=== PATIENT | female | born 1985 | race Caucasian/White ===

== ENCOUNTER 2017-07-23 18:38 | Emergency (ER) | payer BC ==
[2017-07-23 19:47] VITALS: BP 126/61
== END 2017-07-23 19:48 | disposition left against medical advice (07) ==
LOC: ED 18:38
DX: M79.602 Pain in left arm (principal); K21.9 Gastro-esophageal reflux disease without esophagitis
CPT/HCPCS: 99281

== ENCOUNTER 2017-07-24 10:13 | Emergency (ER) | payer BC ==
[2017-07-24 10:57] VITALS: BP 130/87
--- NOTE | 2017-07-24 11:49 | UC ---
Complaint Female HPI - HPI Summary HPI Summary: 31 Y/O female being seen for complaint of right lower quadrant pain and R flank pain. States pain began approximately two weeks ago "when I was ovulating". States history of ovarian cysts. Denies fever, chills, nausea, or vomiting. Denies vaginal discharge. Denies dysuria or frequency. Past medical and medications have been reviewed at this visit. - History Of Current Complaint Chief Complaint: UCGU Stated Complaint: ABD PAIN Time Seen by Provider: 07/24/17 11:25 Hx Obtained From: Patient Hx Last Menstrual Period: 07/09/17 ?: No Onset/Duration: Gradual Onset, Lasting Weeks Timing: Constant Severity Initially: Mild Severity Currently: Moderate Pain Intensity: 7 Pain Scale Used: 0-10 Numeric Radiates to: R flank Character: Sharp Aggravating Factor(s): Movement Alleviating Factor(s): Nothing Associated Signs And Symptoms: Positive: Negative - Risk Factors Ectopic Risk Factor: Negative Ovarian Torsion Risk Factor: Ovarian Cysts/Tumors - Allergies/Home Medications Allergies/Adverse Reactions: Allergies Allergy/AdvReac Type Severity Reaction Status Date / Time Cyclobenzaprine Allergy See Comment Verified 07/24/17 10:57 [From Flexeril] Dronedarone [From Multaq] Allergy Unknown Verified 07/24/17 10:57 Reaction Details Flecainide [From Tambocor] Allergy Shortness Verified 07/24/17 10:57 of Breath Home Medications: Home Medications FLUoxetine CAP* [Prozac CAP*] 10 mg PO DAILY 07/24/17 [History Confirmed ] PMH/Surg Hx/FS Hx/Imm Hx Previously Healthy: Yes - Surgical History Surgical History: Yes Surgery Procedure, Year, and Place: heart monitor - Family History Known Family History: Positive: Cardiac Disease, Other - thyroid ca - Social History Alcohol Use: Occasionally Substance Use Type: None Smoking Status (MU): Former Smoker Have You Smoked in the Last Year: No When Did the Patient Quit Smoking/Using Tobacco: 2007 - Immunization History Most Recent Influenza Vaccination: fall 2013 Most Recent Tetanus Shot: within 10 years Most Recent Pneumonia Vaccination: never Review of Systems Constitutional: Negative Skin: Negative Eyes: Negative ENT: Negative Respiratory: Negative Cardiovascular: Negative Gastrointestinal: Negative Genitourinary: Negative Motor: Negative Neurovascular: Negative Musculoskeletal: Negative Neurological: Negative Psychological: Negative Is Patient Immunocompromised?: No All Other Systems Reviewed And Are Negative: Yes Physical Exam Triage Information Reviewed: Yes Appearance: Well-Appearing Vital Signs: Initial Vital Signs Temp 98.1 F 07/24/17 10:53 Pulse 93 07/24/17 10:53 Resp 17 07/24/17 10:53 BP 130/87 07/24/17 10:53 Pulse Ox 99 07/24/17 10:53 Vital Signs Reviewed: Yes Eye Exam: Normal Eyes: Positive: Conjunctiva Clear Respiratory Exam: Normal Respiratory: Positive: Lungs clear, Normal breath sounds Cardiovascular Exam: Normal Cardiovascular: Positive: RRR Abdomen Description: Positive: CVA Tenderness (R) Bowel Sounds: Positive: Present Musculoskeletal Exam: Normal Neurological Exam: Normal Psychological Exam: Normal Skin Exam: Normal Complaint Female Dx - Differential Dx/Diagnosis Differential Diagnosis/HQI/PQRI: Ovarian Cyst, Pelvic Inflammatory Disease, Sexually Transmitted Disease, Urinary Tract Infection Provider Diagnoses: UTI, Pelvic Pain Discharge - Discharge Plan Condition: Stable Disposition: HOME Patient Education Materials: Ovarian Cyst (ED), Urinary Tract Infection in Women (ED) Additional Instructions: You have bee prescribed antibiotics for a urinary tract infection. Please take as directed. Follow up with your MOTOR TESTER or Urgent care for worsening symptoms.
--- NOTE | 2017-07-25 16:30 | UC ---
Progress - Progress Note Progress Note: G/C/TRICH NEGATIVE. CALL PATIENT
--- NOTE | 2017-07-25 16:31 | UC ---
Progress - Progress Note Progress Note: CBC (WBC 13), CMP NO ACUTE CHANGES, G/C/TRICH NEGATIVE. CALL PATIENT
--- NOTE | 2017-07-26 21:24 | UC ---
Progress - Progress Note Progress Note: call patient advise no uti, no gardenerella, jose, or trich- if not resolved please get rechecked--rajani moreauc
== END 2017-07-24 12:08 | disposition home or self-care (01) ==
LOC: UCEAST 10:13
DX: N39.0 Urinary tract infection, site not specified (principal); R10.2 Pelvic and perineal pain; Z88.8 Allergy status to other drugs, medicaments and biological substances
CPT/HCPCS: 81003; 84702; 87086; 87480; 87491; 87510; 87591; 87660; 99212; G0463

== ENCOUNTER 2017-08-10 06:06 | Day surgery (SDC) | payer BC ==
[~2017-08-10 06:06] MED LIST: Buffered Lidocaine 0.9% SYRIN* 5 ML/SYR SYRINGE INTRADERM ONE; Dexamethasone IV* 4 MG/ML 1 ML (4 MG) IV SLOW PU ONE; Famotidine IV* 10 MG/ML 2 ML (20 mg) IV ONE
[2017-08-10] MEDS ORDERED: Dexamethasone IV* 4 MG/ML 1 ML (4 MG) ONE (07:20)
[2017-08-10] MEDS ORDERED: Famotidine IV* 10 MG/ML 2 ML (20 mg) ONE (07:20)
[2017-08-10] MEDS ORDERED: Bupivacaine 0.5% SDV PF* 30 ML VIAL ONE (07:29)
[2017-08-10] MEDS ORDERED: fentaNYL* 50 MCG/ML 2 ML VIAL (100 MCG VIAL) ONE ×3 (07:41→10:07)
[2017-08-10] MEDS ORDERED: Midazolam* 1 MG/ML 2 ML VIAL (2 MG) ONE (07:42)
[2017-08-10] MEDS ORDERED: ceFAZolin 2 GM PREMIX (*) 2 GM/50 ML BAG IVPB ONE (07:42)
[2017-08-10] MEDS ORDERED: Lidocaine 1% INJ* 10 MG/ML 30 ML SDV ONE (07:48)
[2017-08-10] MEDS ORDERED: Rocuronium* 10 MG/ML VIAL ONE (07:55)
[2017-08-10] MEDS ORDERED: Ropivacaine (OR use only) 2 MG/ML 1 ML ONE (07:55)
[2017-08-10] MEDS ORDERED: Succinylcholine* 20 MG/ML 10 ML VIAL ONE (07:56)
[2017-08-10] MEDS ORDERED: Propofol* 10 MG/ML 20 ML BTL IV PUSH ONE (09:02)
[2017-08-10] MEDS ORDERED: Neostigmine Methylsulfate* 2 MG/2 ML SYRINGE ONE (09:02)
[2017-08-10] MEDS ORDERED: Ketorolac INJ* 30 MG/ML 1 ML VIAL ONE (09:02)
[2017-08-10] MEDS ORDERED: Ondansetron INJ* 2 MG/ML VIAL ONE (09:02)
[2017-08-10] MEDS ORDERED: Glycopyrrolate IV* 0.2 MG/ML 1 ML VIAL ONE (09:02)
[2017-08-10] MEDS ORDERED: DiMENhydriNATE IV* 50 MG/ML VIAL IV PUSH PRN (09:25)
[2017-08-10] MEDS ORDERED: DiMENhydriNATE IV* 50 MG/ML VIAL ONE (09:34)
[2017-08-10] MEDS: fentaNYL* 50 MCG/ML 2 ML VIAL (100 MCG VIAL) IV PRN ×3 (09:35→10:06)
[2017-08-10] MEDS ORDERED: oxyCODONE/Acetamin 5/325 MG* TAB ONE ×2 (11:20→11:48)
[2017-08-10 11:50] VITALS: BP 115/80
--- NOTE | 2017-08-17 00:13 | OP ---
CC: Dr. Jerry * DATE OF OPERATION: 08/10/17 - [facility] DATE OF : 81 SURGEON: Jose Gutierrez MD. VICE PRESIDENT SUPPLY CHAIN: Dr. Jerry. ANESTHESIA: General anesthetic with endotracheal intubation. PRE-OP DIAGNOSIS: Persistent symptomatic right ovarian enlarged cyst. POST-OP DIAGNOSIS: Persistent symptomatic right ovarian enlarged cyst along with an enlarged simple cyst and pelvic posterior uterine wall adhesions. OPERATIVE PROCEDURE: Laparoscopic right ovarian cystectomy and lysis of adhesions. ESTIMATED BLOOD LOSS: None. SPECIMENS SENT TO PATHOLOGY: Right ovarian cyst wall. FLUIDS: She received 1 L of IV crystalloid fluid. URINE OUTPUT: 50 cc of clear urine. FINDINGS: The patient was noted to have a posterior uterine wall to right ovarian cyst adhesions and posterior uterine wall to bowel adhesions. She was noted to have an enlarged 8+ cm simple unilateral cyst with a straw-colored fluid. She was noted to have normal tubes bilaterally and normal left ovary. Normal bowel and bladder and uterus. There were no complications during this procedure. DESCRIPTION OF PROCEDURE: The patient was taken to the operating room where she was identified. She was placed on the operating table where a general anesthetic with endotracheal intubation was obtained without difficulty. She was then placed in the dorsal lithotomy position, prepped and draped in normal sterile fashion. Attention was then brought on to the patient's perineum, where the bladder was catheterized with a Gonzalez catheter and drained of clear urine. A weighted speculum was inserted into the patient's vagina. The cervix was identified and grasped with a single-tooth tenaculum and through the cervix a ClearView uterine manipulator was introduced. The balloon and manipulator was insufflated with 4 cc of sterile water. The speculum was removed from the patient's vagina. At this point, attention was then brought on to the patient's abdomen where a 1-cm infraumbilical skin incision was made with a knife and carried through to underlying layer of fascia. The fascia was then grasped with Berny clamps, brought up to the incision and incised easily with a knife and entry into the perineum was confirmed using a Adrianna clamp. Through this umbilical incision, a single side laparoscopic port was introduced and through this port, two 5 mm trocars and one 5 mm trocar was introduced for the camera. We then proceeded to identify the patient's pelvic anatomy. The description of the findings are noted above. We performed an ovarian cystotomy using a combination of cautery and sharp dissection. The ovarian cyst was noted to be unilateral, filled with straw-colored fluid and top of the uterine cyst was removed using cautery sharp dissection. This was sent to pathology. We then proceeded to lyse the adhesions from the right ovary to the posterior uterine wall posterior uterine wall using a LigaSure cautery and dissection. After we were able to restore anatomy and the cyst was drained of its fluid and ovarian cyst capsule removed, specimens were sent to pathology. We then proceeded to remove all the instruments from the patient's abdomen. The umbilical incision was closed using 0 Polysorb suture in a running fashion and the skin was closed with a 4-0 Monocryl and a subcuticular stitch. All the instruments were removed from the patient's vagina as well. Sponge, lap, and needle counts were correct x2. She was then transferred to recovery room area in stable condition. [id number] #: [id number] OBDULIA
== END 2017-08-10 11:52 | disposition home or self-care (01) ==
LOC: OR 06:06
PROVIDERS: ATTEND Obstetrics & Gynecology
DX: N83.201 Unspecified ovarian cyst, right side (principal); N73.6 Female pelvic peritoneal adhesions (postinfective); Z68.31 Body mass index [BMI] 31.0-31.9, adult; I47.1 Supraventricular tachycardia; I48.91 Unspecified atrial fibrillation; R10.31 Right lower quadrant pain; E03.9 Hypothyroidism, unspecified; F41.8 Other specified anxiety disorders
CPT/HCPCS: 88304; A9270-GY; J0330; J0690; J1100; J1240; J1885; J2001; J2250; J2405; J2704; J2795; J3010

== ENCOUNTER 2018-05-19 18:06 | Emergency (ER) | payer OTHER ==
[2018-05-19 18:17] VITALS: BP 128/85
--- NOTE | 2018-05-19 18:31 | UC ---
Abdominal Pain Female HPI - HPI Summary HPI Summary: 32 y/o female presents to the urgent care c/o RLQ acute abdominal pain sine last night. Pain increased in severity this morning. Pain is 7/10 sharp and constant w/o any radiation. Pt reports she has PMHX of ovarian cysts which grow very fast. Last year she had a RT ovarian cyst of about 8.5cm in size which was removed by Dr Gutierrez her [facility]. Pt took a Tylenol PO this morning to alleviate symptoms. LMP: 05/03/2018 w/ regular menstrual cycles Pt denies urinary symptoms and is taking OCP. Pt denies fever, urinary symptoms, vaginal discharge, SOB, chest pain, N/v/D, Hx of STD's. Pt w/ normal BM and eating well. - History of Current Complaint Chief Complaint: UCAbdominalPain Stated Complaint: ABDOMINAL COMPLAINT Time Seen by Provider: 05/19/18 18:27 Hx Obtained From: Patient Hx Last Menstrual Period: [id number] ?: No Onset/Duration: Gradual Onset, Lasting Days - 1 day, Still Present, Worse Since - this morning Timing: Constant Severity Initially: Mild Severity Currently: Moderate Pain Intensity: 7 Pain Scale Used: 0-10 Numeric Location: Discrete At: RLQ Radiates: No Character: Sharp Aggravating Factor(s): Nothing Alleviating Factor(s): OTC Analgesics Associated Signs and Symptoms: Negative: Fever, Cough, Back Pain, Constipation, Blood in Stool, Urinary Symptoms, Vaginal Bleeding, Nausea, Vomiting, Diarrhea - Risk Factors Ectopic Risk Factor: Negative Ovarian Torsion Risk Factor: Ovarian Cysts/Tumors Allergies/Adverse Reactions: Allergies Allergy/AdvReac Type Severity Reaction Status Date / Time cyclobenzaprine Allergy See Comment Verified 05/19/18 18:23 [From Flexeril] dronedarone [From Multaq] Allergy Unknown Verified 05/19/18 18:23 Reaction Details flecainide [From Tambocor] Allergy Shortness Verified 05/19/18 18:23 of Breath PMH/Surg Hx/FS Hx/Imm Hx Previously Healthy: Yes Endocrine History: Hypothyroidism Other Cardiovascular History: tachycardia Other Respiratory History: Sarcoidosis Other GI/ History: Ovarian cysts - Surgical History Surgical History: Yes Surgery Procedure, Year, and Place: heart monitor. Failed cardiac ablation X2 - Family History Known Family History: Positive: Cardiac Disease, Other - thyroid ca - Social History Occupation: Employed Full-time Lives: With Family Alcohol Use: Occasionally Substance Use Type: None Smoking Status (MU): Former Smoker Have You Smoked in the Last Year: No When Did the Patient Quit Smoking/Using Tobacco: 2007 - Immunization History Most Recent Influenza Vaccination: fall 2013 Most Recent Tetanus Shot: within 10 years Most Recent Pneumonia Vaccination: never Review of Systems Constitutional: Negative Skin: Negative Eyes: Negative ENT: Negative Respiratory: Negative Cardiovascular: Negative Gastrointestinal: Abdominal Pain - RLQ Genitourinary: Negative Motor: Negative Neurovascular: Negative Musculoskeletal: Negative Neurological: Negative Psychological: Negative Is Patient Immunocompromised?: No All Other Systems Reviewed And Are Negative: Yes Physical Exam - Summary Physical Exam Summary: Vital Signs Reviewed: Yes General:Patient is a well developed and nourished female who is sitting comfortable in the examining table. Patient is not in any acute respiratory distress. Eyes: Positive: Conjunctiva Clear - PERRLA, EOMI, fundi grossly normal ENT: Positive: Normal ENT inspection, Hearing grossly normal, Pharynx normal, TMs normal Neck: Positive: Supple, Nontender, No Lymphadenopathy Respiratory: Positive: Chest non-tender, Lungs clear, Normal breath sounds, No respiratory distress Cardiovascular: Positive: RRR,S1 and S2 present, No Murmur, Pulses Normal, Brisk Capillary Refill Abdomen Description: Positive: Abd: Flat with no distention. No surface trauma , scars, incisions. hyperactive bowel sounds present in all four quadrants. RLQ tenderness w/ mild guarding, other quadrant are negative, no rigidity to palpation. No masses palpated, no pulsation in epigastric area. No organomegaly. Negative Hyannis signs. No periumbilical tenderness. No rebound in the lower quadrants. PT over McBurneys point. Good femoral pulses bilaterally. No hernia noted. No CVAT bilaterally Musculoskeletal: Positive: Strength Intact, ROM Intact, No Edema,FROM in all major joints, no edema, no cyanosis or clubbing. Neuro: Alert and oriented x 3. No acute neurological deficits. Speech is normal. Psychological: WNL Skin: Dry and warm Triage Information Reviewed: Yes Vital Signs: Initial Vital Signs Temp 98.8 F 05/19/18 18:13 Pulse 85 05/19/18 18:13 Resp 16 05/19/18 18:13 BP 128/85 05/19/18 18:13 Pulse Ox 100 05/19/18 18:13 Abd Pain Female Course/Dx - Course Course Of Treatment: 32 y/o female presents to the urgent care c/o RLQ acute abdominal pain sine last night. Pain increased in severity this morning. Pain is 7/10 sharp and constant w/o any radiation. Pt reports she has PMHX of ovarian cysts which grow very fast. Last year she had a RT ovarian cyst of about 8.5cm in size which was removed by Dr Gutierrez her [facility]. Pt took a Tylenol PO this morning to alleviate symptoms. LMP: 05/03/2018 w/ regular menstrual cycles Pt denies urinary symptoms and is taking OCP. Pt denies fever, urinary symptoms, vaginal discharge, SOB, chest pain, N/v/D, Hx of STD's. PE: RLQ point tenderness on deep palpation w/ mild guarding. PT over McBurneys point on examination. Pt is hemodynamycally stable, vital are WNL. UA: negative, test: negative. Pt w/ strong PMHX Hx of ovarina cyst. At this moment no Ultrasound available. Pt's symptoms discussed w/ Dr King since i think Pt needs a hihger level of care. Dr King agreed. Pt strongly advised to go to the [facility] ER to furhter evaluation and treatment on her presenting symptoms. Pt offered ambulance transfer. Pt declined and stated she will go by private car. Pt advised on risks of not going to the ER. Pt understood and agreed w/ plan of care. Pt left clinic hemodynamically stable , A&OX. 3. - Differential Dx/Diagnosis Differential Diagnosis: Appendicitis, Ovarian Cyst, Pelvic Inflammatory Disease , , Renal Colic, Urinary Tract Infection Provider Diagnoses: 1- RLQ acute abdominal pain Discharge - Sign-Out/Discharge Documenting (check all that apply): Patient Departure - D?c w/ recommendation to got to the [facility] ER for fruterh management All imaging exams completed and their final reports reviewed: No Studies - Discharge Plan Condition: Stable Disposition: HOME-RECOMMEND TO ED Patient Education Materials: Acute Abdominal Pain (ED) Referrals: Kelvin Carpenter MD [Primary Care Provider] - 1 Day Additional Instructions: I think you need a higher level or care for your presenting symptoms. I highly recommend you to go to the ER for further evaluation and treatment. The risks of not going can be , sepsis, ovarian torsion, appendicitis, peritonitis, etc. I spoke to the ER attending PA Feliciano Varela. They are expecting you. - Billing Disposition and Condition Condition: STABLE Disposition: Home-Recommend to ED
== END 2018-05-19 18:55 | disposition home health service (06) ==
LOC: UCEAST 18:06
DX: R10.31 Right lower quadrant pain (principal); Z87.42 Personal history of other diseases of the female genital tract; Z88.8 Allergy status to other drugs, medicaments and biological substances
CPT/HCPCS: 81003; 84702; 99212; G0463

== ENCOUNTER 2018-05-19 19:11 | Emergency (ER) | payer OTHER ==
[2018-05-19 20:27] LABS: ABS Basophils 0 10^3/ul (0-0.2); ABS Eosinophils 0.2 10^3/ul (0-0.6); ABS Lymphocytes 2.2 10^3/ul (1.0-4.8); ABS Monocytes 0.5 10^3/ul (0-0.8); ABS Neutrophils 2.2 10^3/ul (1.5-7.7); ABS Nucleated RBC 0 10^3/ul; Eosinophil % 3.7 % (0-6); Hematocrit 35 % (35-47); Hemoglobin 12.4 g/dl (12.0-16.0); Lymphocyte % 43.7 % (25-47); Mean Corpuscular HGB Conc 35 g/dl (31-36); Mean Corpuscular Hemoglobin 30 pg (27-31); Mean Corpuscular Volume 86 fL (80-97); Mean Platelet Volume 8.5 um3 (7.4-10.4); Nucleated Red Blood Cells % 0.1; Platelet Count 234 10^3/ul (150-450); Red Cell Distribution Width 13 % (10.5-15); White Blood Count 5.1 10^3/ul (3.5-10.8)
--- NOTE | 2018-05-19 20:31 | ED ---
Abdominal Pain/Female - HPI Summary HPI Summary: Pt is a 32 year old female presenting to the ED with lower abdominal pain currently rated at a 7 or 8 out of 10. Pt denies any nausea, fevers, diarrhea, vaginal bleeding, and urinary symptoms. Pt states walking makes it worse. LNMP on the 03 of May. Pt denies a family history of crohns disease, also denies drinking and concerns. Pt does have a hx and Fhx of PCOS, as well as a Fhx of diverticulitis. Pt has had an ovarian cyst removed before, stated it was about 9cm large. - History of Current Complaint Chief Complaint: EDAbdPain Stated Complaint: ABD PAIN Time Seen by Provider: 05/19/18 20:14 Hx Obtained From: Patient Hx Last Menstrual Period: [id number] ?: No Onset/Duration: Sudden Onset, Lasting Hours, Still Present Timing: Constant Severity Initially: Moderate Severity Currently: Moderate Pain Intensity: 8 Pain Scale Used: 0-10 Numeric Location: Suprapubic - R side Radiates: Yes Radiates to: Back - Low R back pain Aggravating Factor(s): Other: - walking Associated Signs and Symptoms: Positive: Back Pain. Negative: Fever, Urinary Symptoms, Vaginal Bleeding, Nausea Allergies/Adverse Reactions: Allergies Allergy/AdvReac Type Severity Reaction Status Date / Time cyclobenzaprine Allergy See Comment Verified 05/19/18 18:23 [From Flexeril] dronedarone [From Multaq] Allergy Unknown Verified 05/19/18 18:23 Reaction Details flecainide [From Tambocor] Allergy Shortness Verified 05/19/18 18:23 of Breath PMH/Surg Hx/FS Hx/Imm Hx Previously Healthy: No Endocrine/Hematology History: Reports: Hx Thyroid Disease - TAKING MEDICATION Denies: Hx Diabetes, Hx Anemia Cardiovascular History: Reports: Hx Angina, Other Cardiovascular Problems/ Disorders - SOMETIMES SVT HASN'T HAD IN A YEAR Denies: Hx Hypertension Respiratory History: Reports: Other Respiratory Problems/Disorders - Recently diagnosed with sarcoidosis Denies: Hx Asthma, Hx Chronic Obstructive Pulmonary Disease (COPD) GI History: Denies: Hx Jaundice, Hx Ulcer History: Reports: Other Problems/Disorders - PCOS Musculoskeletal History: Reports: Hx Back Problems, Hx Tendonitis - RIGHT THUMB Sensory History: Denies: Hx Contacts or Glasses, Hx Hearing Aid Opthamlomology History: Denies: Hx Contacts or Glasses Neurological History: Reports: Hx Headaches, Hx Migraine Psychiatric History: Reports: Hx Anxiety, Hx Depression - Surgical History Surgery Procedure, Year, and Place: heart monitor. Failed cardiac ablation X2 Hx Anesthesia Reactions: No Other Surgical History: 9cm ovarian cyst removed - Immunization History Date of Tetanus Vaccine: UTD Date of Influenza Vaccine: 05/2017 Infectious Disease History: No Infectious Disease History: Denies: Hx Clostridium Difficile, Hx Hepatitis, Hx Human Immunodeficiency Virus (HIV), Hx of Known/Suspected MRSA, Hx Shingles, Hx Tuberculosis, Hx Known/ Suspected VRE, Hx Known/Suspected VRSA, History Other Infectious Disease, Traveled Outside the [place] in Last 30 Days - Family History Known Family History: Positive: Cardiac Disease, Other - thyroid ca Family History: Positive diverticulitis, PCOS. Negative crohn's disease - Social History Lives: With Family Alcohol Use: Occasionally Hx Substance Use: No Substance Use Type: Reports: None Hx Tobacco Use: Yes Smoking Status (MU): Former Smoker Have You Smoked in the Last Year: No Review of Systems Negative: Fever Positive: Abdominal Pain. Negative: Diarrhea, Nausea Genitourinary: Negative - vag bleeding, urinary sx All Other Systems Reviewed And Are Negative: Yes Physical Exam - Summary Physical Exam Summary: Appearance: Well appearing, no pain distress Skin: warm, dry, reflects adequate perfusion Head/face: normal Eyes: EOMI, KYA ENT: normal Neck: supple, non-tender Respiratory: CTA, breath sounds present Cardiovascular: RRR, pulses symmetrical Abdomen: bilateral pelvic discomfort, R suprapubic specifically, no rebound or guarding Bowel Sounds: present, normal Musculoskeletal: normal, strength/ROM intact, R low back pain Neuro: normal, sensory motor intact, A&Ox3 Triage Information Reviewed: Yes Vital Signs On Initial Exam: Initial Vitals Temp Pulse Resp BP Pulse Ox 98.6 F 81 18 122/85 97 05/19/18 19:26 05/19/18 19:26 05/19/18 19:26 05/19/18 19:26 05/19/18 19:26 Vital Signs Reviewed: Yes Diagnostics - Vital Signs Vital Signs Temp Pulse Resp BP Pulse Ox 05/19/18 19:26 98.6 F 81 18 122/85 97 - Laboratory Result Diagrams: 05/19/18 20:16 05/19/18 20:16 Lab Statement: Any lab studies that have been ordered have been reviewed, and results considered in the medical decision making process. - Ultrasound No standard instances Ultrasound Interpretation: No Acute Changes - Transvaginal US: Sonographically normal uterus and ovaries. ED physician has reviewed this report. Ultrasound Interpretation Completed By: Radiologist Re-Evaluation - Re-Evaluation 1 Re-Evaluation Time: 22:00 Change: Improved - CT scan offered, pt denied, sent home by ED physician. Abdominal Pain Fem Course/Dx - Course Course Of Treatment: Patient had significant improvement in discomfort. She is very benign-appearing. There is no peritoneal signs. An ultrasound of her pelvis failed to reveal any pathology, most notably cysts. She does have some pain just below the right lower quadrant the abdomen. The patient has to be home to care for her daughter -- she was given extensive appendicitis precautions and return instructions. I've instructed her to call me or return through the night should she have increasing pain in the right lower quadrant. She has negative CRP, WBC. There is no fever, nausea, etc. She has a normal gait and is moving freely without discomfort. She wishes to the home at this point and not have CT scan. - Diagnoses Differential Diagnosis: Positive: Appendicitis, Ectopic , Ovarian Cyst , Pelvic Inflammatory Disease, Urinary Tract Infection Provider Diagnoses: Pelvic pain Discharge - Sign-Out/Discharge Documenting (check all that apply): Patient Departure - Discharge Plan Condition: Improved Disposition: HOME Patient Education Materials: Pelvic Pain in Women (ED) Referrals: Kelvin Carpenter MD [Primary Care Provider] - Additional Instructions: Ibuprofen as needed. Return with fever, increasing pain, nausea/vomiting, or other concerns as discussed. Appendicitis is still a concern given the location of the pain. If you have problems please return and it is likely a CAT scan will be performed. - Billing Disposition and Condition Condition: IMPROVED Disposition: Home - Attestation Statements Document Initiated by Scribe: Yes Documenting Scribe: Marci Lora Provider For Whom Derrick is Documenting (Include Credential): Wilfrid Monroe MD. Scribe Attestation: Marci Encinas, scribed for Wilfrid Monroe MD. on 05/19/18 at 2252. Scribe Documentation Reviewed: Yes Provider Attestation: The documentation as recorded by the [email or web address] accurately reflects the service I personally performed and the decisions made by me, Wilfrid Monroe MD.
[2018-05-19 20:39] LABS: EGFR Non-African American 87.1 (>60)
[2018-05-19] MEDS ORDERED: Ketorolac INJ* 30 MG/ML 1 ML VIAL IV PUSH ONE (21:29)
--- NOTE | 2018-05-19 22:39 | RAD ---
EXAM: US Pelvis, Transvaginal CLINICAL HISTORY: 32 years old, female; Pain; Pelvic pain; Prior surgery; Surgery date: 6+ months; Surgery type: Right ovarian cyst removed july 2017; Additional info: Pelvic pain, worse r side TECHNIQUE: Real-time transvaginal pelvic ultrasound (complete) with image documentation. Transvaginal imaging was used for better evaluation of the endometrium and adnexa. COMPARISON: PEL/TRANS US PELVIS/TRANSVAG 12/27/2014 12:57 PM FINDINGS: Uterus/cervix: Anteverted anteflexed. Measures 8.0 x 4.8 x 4.0 cm (79 cc). No myometrial masses. Late proliferative phase endometrium measuring 0.7 cm. Right ovary: Right ovary measures 3.1 x 1.6 x 1.1 cm (3 cc). Normal size and echogenicity with no masses. Normal follicles. Normal arterial and venous waveforms. Left ovary: Left ovary measures 2.7 x 2.0 x 1.7 cm (4.7 cc). Normal size and echogenicity with no masses. Normal follicles. Normal arterial and venous waveforms. Normal blood flow. Free fluid: No free fluid. Bladder: Empty bladder which cannot be evaluated with this probe. IMPRESSION: Sonographically normal uterus and ovaries.
[2018-05-19 22:43] VITALS: BP 127/83
== END 2018-05-19 22:42 | disposition home or self-care (01) ==
LOC: ED 19:11
DX: R10.2 Pelvic and perineal pain (principal); M54.9 Dorsalgia, unspecified; R10.9 Unspecified abdominal pain; Z87.891 Personal history of nicotine dependence
CPT/HCPCS: 36415; 76830; 80053; 83605; 83690; 84702; 85025; 86140; 96374; 99282; J1885

== ENCOUNTER 2022-01-20 16:48 | Observation (INO) ==
[2022-01-20] MEDS ORDERED: Morphine 4 MG/ML VIAL (1 ml) IV ONE (19:45)
[2022-01-20 20:05] LABS: ABS Eosinophils 0.2 10^3/ul (0-0.6); ABS Lymphocytes 1.7 10^3/ul (1.0-4.8); ABS Monocytes 0.7 10^3/ul (0-0.8); ABS Neutrophils 4.8 10^3/ul (1.5-7.7); Hematocrit 38 % (35-47); Hemoglobin 13.1 g/dL (12.0-16.0); Lymphocyte % 23.1 %; Mean Corpuscular HGB Conc 35 g/dL (31-36); Mean Corpuscular Hemoglobin 31 pg (27-31); Mean Corpuscular Volume 89 fL (80-97); Mean Platelet Volume 8.8 fL (7.4-10.4); Nucleated Red Blood Cells % 0.1; Platelet Count 225 10^3/uL (150-450); Red Blood Count 4.22 10^6 /uL (3.70-4.87); Red Cell Distribution Width 13 % (10-15); White Blood Count 7.4 10^3/uL (3.5-10.8)
[2022-01-20 20:16] LABS: INR 0.99 (0.86-1.15)
[2022-01-20 20:31] LABS: Albumin 4.3 g/dL (3.2-5.2); Albumin/Globulin Ratio 1.4 (1-3); Calcium 9.3 mg/dL (8.6-10.3); Globulin 3.1 g/dL (2-4); Potassium 3.9 mmol/L (3.5-5.0); Total Bilirubin 0.4 mg/dL (0.2-1.0); Total Protein 7.4 g/dL (6.4-8.9); eGFR CKD-EPI 89.9 (>60)
[2022-01-20] MEDS ORDERED: Iohexol 350 (CONTRAST) 500 ML MDV IV ONE (20:36)
[2022-01-20] MEDS ORDERED: Enoxaparin 100 MG/ML SYR SUBCUT ONE (21:20)
[2022-01-20] MEDS ORDERED: Heparin 5000 UNITS/ML 1 mL VIAL IV SCH (22:00)
[2022-01-20] MEDS ORDERED: PROPAFENONE 425 MG PO ONE (22:20)
[2022-01-20] MEDS: Heparin DRIP 25,000 UNITS BAG 25,000 UNITS/500 ML BAG IV SCH (22:28)
[2022-01-20 22:42] LABS: ABS Eosinophils 0.1 10^3/ul (0-0.6); ABS Monocytes 0.7 10^3/ul (0-0.8); ABS Neutrophils 5.5 10^3/ul (1.5-7.7); Eosinophil % 1.7 %; Hematocrit 38 % (35-47); Lymphocyte % 23.9 %; Mean Corpuscular HGB Conc 35 g/dL (31-36); Mean Corpuscular Hemoglobin 31 pg (27-31); Mean Corpuscular Volume 90 fL (80-97); Mean Platelet Volume 8.9 fL (7.4-10.4); Platelet Count 218 10^3/uL (150-450); Red Blood Count 4.18 10^6 /uL (3.70-4.87); Red Cell Distribution Width 13 % (10-15); White Blood Count 8.4 10^3/uL (3.5-10.8)
[2022-01-20 23:06] LABS: eGFR CKD-EPI 95.2 (>60)
[2022-01-20] MEDS ORDERED: Morphine 2 MG/ML SYRINGE IV PRN (23:36)
[2022-01-20] MEDS ORDERED: Propafenone ER 225 mg CAP (NF) 225 MG CAP.ER PO ONE (23:45)
[2022-01-20] MEDS ORDERED: Acetaminophen IV 1 GM/100ML 100 ML IV SCH (23:45)
[2022-01-21 02:12] LABS: Magnesium 1.9 mg/dL (1.9-2.7)
[2022-01-21] MEDS ORDERED: Morphine 2 MG/ML SYRINGE IV PRN (04:55)
[2022-01-21] MEDS ORDERED: Acetaminophen IV 1 GM/100ML 100 ML IV PRN (05:00)
[2022-01-21] MEDS ORDERED: Levothyroxine 100 MCG/5 ML VIAL IV SCH (06:00)
[2022-01-21 06:23] LABS: ABS Basophils 0.1 10^3/ul (0-0.2); ABS Eosinophils 0.1 10^3/ul (0-0.6); ABS Lymphocytes 1.8 10^3/ul (1.0-4.8); ABS Monocytes 0.6 10^3/ul (0-0.8); ABS Neutrophils 4.4 10^3/ul (1.5-7.7); Eosinophil % 1.7 %; Hematocrit 36 % (35-47); Hemoglobin 12.6 g/dL (12.0-16.0); Lymphocyte % 25.7 %; Mean Corpuscular HGB Conc 35 g/dL (31-36); Mean Corpuscular Hemoglobin 31 pg (27-31); Mean Corpuscular Volume 89 fL (80-97); Mean Platelet Volume 8.7 fL (7.4-10.4); Platelet Count 191 10^3/uL (150-450); Red Blood Count 4.08 10^6 /uL (3.70-4.87); Red Cell Distribution Width 13 % (10-15)
[2022-01-21] MEDS ORDERED: PROPAFENONE 425 MG PO SCH (11:00)
[2022-01-21] MEDS ORDERED: PROPAFENONE 225 MG PO ONE (11:30)
[2022-01-21] MEDS: Heparin DRIP 25,000 UNITS BAG 25,000 UNITS/500 ML BAG IV SCH (13:32)
[2022-01-21 15:05] VITALS: BP 111/79
== END 2022-01-21 23:34 | disposition home or self-care (01) ==
LOC: ED 16:48 → INTOOBSV 22:12 → EDHOLD 22:12 → SUATTDRO 22:12 → EDHOLD 01-21 03:42 → MEDTELE 01-21 04:19 → UNDODISIN 01-21 18:13
PROVIDERS: ADMIT Internal Medicine; ATTEND Hospitalist